=== PATIENT | female | born 2000 | race African-American/Black ===

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

== ENCOUNTER 2021-06-13 08:50 | Emergency (ER) | payer OTHER ==
[~2021-06-13] VITALS: Ht 167.6 cm; Wt 77.1 kg
[~2021-06-13 08:50] MED LIST: ACETAMINOPHEN500 MG PO; BACITRACIN-POL3.5 GM OD; IBUPROFEN IB200 MG PO; TRIFLURIDINE7.5 ML OD; VALACYCLOVIR500 MG PO
[2021-06-13] MEDS ORDERED: IBUPROFEN600 MG PO (09:29)
== END 2021-06-13 09:35 | disposition home or self-care (01) ==
LOC: FSED 08:55
DX: S63.501A Unspecified sprain of right wrist, initial encounter (principal); V43.62XA Car passenger injured in collision with other type car in traffic accident, initial encounter; Y92.488 Other paved roadways as the place of occurrence of the external cause; J45.909 Unspecified asthma, uncomplicated
CPT/HCPCS: 99282